=== PATIENT | female | born 1970 | race Caucasian/White ===

== ENCOUNTER 2023-09-14 14:25 | Emergency (ER) | payer OTHER ==
[2023-09-14 14:39] VITALS: PULSE 77; RESP 16; TEMP 98.4; BMI 21.7
[2023-09-14 14:48] VITALS: BP 180/106
== END 2023-09-14 16:06 | disposition left against medical advice (07) ==
LOC: FER 14:25
DX: M54.9 Dorsalgia, unspecified (principal); M25.519 Pain in unspecified shoulder
CPT/HCPCS: 99281-25